=== PATIENT | male | born 1965 | race Caucasian/White ===

== ENCOUNTER 2020-12-26 12:00 | Observation (INO) | payer OTHER, SELFPAY ==
[2020-12-26] VITALS (10 sets, daily range): BP systolic 120–184; BP diastolic 66–104; PULSE 59–80; RESP 17–20; TEMP 36.7–36.8; O2SAT 94–100; BMI 30.1; BMI 28.6
--- NOTE | 2020-12-26 11:51 | ECG_ITS ---
APPROVED REPORT Exam: Resting ECG HR:61 bpm ECG Measurements Heart Rate 61 AXES SD 136 P 40 QRSd 142 QRS 36 QT 436 T 34 QTc 438 Conclusion Normal sinus rhythm Right bundle branch block Abnormal ECG Electronically signed by : Antonio Cat, 12/27/2020 08:54:18
--- NOTE | 2020-12-26 12:01 | XR_ITS ---
PROCEDURE: XR CHEST 2V CLINICAL HISTORY: chest pain COMPARISON: No exams were available for comparison FINDINGS: The cardiomediastinal silhouette and pulmonary vascularity are within normal limits. The lungs are clear without infiltrates, suspicious nodules, or pleural effusions. No acute bony abnormalities. IMPRESSION: No acute findings. Dictated by: Johnnie Gore MD 12/26/2020 12:26 Johnnie Gore MD in [place] 12/26/2020 12:26
--- NOTE | 2020-12-26 12:01 | HMH.EDCP ---
ED Disposition Clinical Impression: Chest pain Qualifiers: Chest pain type: chest pain due to myocardial ischemia Ischemic chest pain type: unstable angina pectoris Qualified Code(s): I20.0 - Unstable angina Disposition: Admitted As Inpatient Condition on Discharge: Serious Referrals: Ivy Ingram APRN [Primary Care Provider] - Time of Disposition: 15:24 - Critical Care Critical Care Time: No Attestation: On , the high probability of a clinically significant, sudden or life threatening deterioration of the following system(s) required my full and direct attention, intervention and personal management. The time I documented below is in addition to time spent performing reported procedures but includes the following listed in this critical care notation. Medical Decision Making - Medical Records Medical records reviewed: Yes: I reviewed the patient's medical records. - Reynold Inquiry Pt receiving controlled substance: No Vital Signs: 12/26/20 12:00 12/26/20 12:30 12/26/20 13:00 Temperature 98.3 F Temperature Source Oral Pulse Rate [Left Radial] 73 61 60 Respiratory Rate 20 18 Blood Pressure [Right Arm] 139/84 122/79 120/78 Blood Pressure Mean [Right Arm] 102 93 92 Blood Pressure Source [Right Arm] Automatic Cuff Blood Pressure Position [Right Arm] Sitting 02 Sat by Pulse Oximetry 100 95 98 Oxygen Delivery Method Room Air Room Air 12/26/20 14:30 12/26/20 15:17 Temperature Temperature Source Pulse Rate [Left Radial] 64 59 L Respiratory Rate 17 18 Blood Pressure [Right Arm] 143/92 H 149/97 H Blood Pressure Mean [Right Arm] 109 114 Blood Pressure Source [Right Arm] Blood Pressure Position [Right Arm] Sitting 02 Sat by Pulse Oximetry 97 96 Oxygen Delivery Method Room Air - Lab Data Lab Results 12/26/20 12:00: WBC 9.2, RBC 5.24, Hgb 16.1, Hct 50.3, MCV 95.9 H, MCH 30.8, MCHC 32.1, RDW 13.4, Plt Count 229, MPV 7.6, Neut % (Auto) 71.3, Lymph % (Auto) 20.6, Floyd % (Auto) 6.7, Eos % (Auto) 1.0, Baso % (Auto) 0.5, Neut # (Auto) 6.6, Lymph # (Auto) 1.9, [place] # (Auto) 0.6, Eos # (Auto) 0.1, Baso # (Auto) 0.0 12/26/20 12:00: Sodium 139, Potassium 3.9, Chloride 103, Carbon Dioxide 27, Anion Gap 12.9, BUN 21 H, Creatinine 0.90, Estimated Creat Clear 126, Estimated GFR 88, Est GFR ( Amer) 106, Glucose 78, Calcium 9.4, Troponin I < 0.01 12/26/20 12:00: D-Dimer 0.69 H 12/26/20 14:25: Troponin I < 0.01 Result diagrams: 12/26/20 12:00 12/26/20 12:00 Orders (Tests/Meds): ED MEDICATIONS Generic Name Dose Route Start Last Admin Trade Name Freq PRN Reason Stop Dose Admin Acetaminophen 650 mg 12/26/20 15:11 Acetaminophen 325mg Tab PO 01/25/21 15:10 Q4HP PRN As Needed for Fever or Pain Fentanyl Citrate 25 mcg 12/26/20 15:01 Fentanyl 100mcg/2ml Vial IV 12/27/20 15:01 Q3MINP PRN Moderate to Severe Pain Fentanyl Citrate 50 mcg 12/26/20 15:01 Fentanyl 100mcg/2ml Vial IV 12/27/20 15:01 Q3MINP PRN Moderate to Severe Pain Fentanyl Citrate 25 mcg 12/26/20 15:01 Fentanyl 250mcg/5ml Vial IV 12/27/20 15:01 Q3MINP PRN Moderate to Severe Pain Fentanyl Citrate 50 mcg 12/26/20 15:01 Fentanyl 250mcg/5ml Vial IV 12/27/20 15:01 Q3MINP PRN Moderate to Severe Pain Flumazenil 0.2 mg 12/26/20 15:01 Flumazenil 0.1mg/Ml 5ml Vial IV 12/26/20 23:00 NEEDED PRN Sedation Sodium Chloride 1,000 mls @ 150 mls/hr 12/26/20 15:15 Sod Chlor 0.9% 1000ml Bag IV 01/25/21 15:14 .Q6H40M DEVI Metoprolol Succinate 25 mg 12/27/20 15:30 Metoprolol Succinate Xl 25mg Tablet PO 12/27/20 15:31 DAILY ONE Midazolam HCl 1 mg 12/26/20 15:01 Midazolam 2mg/2ml Vial IV 12/27/20 15:01 Q3MINP PRN Sedation Midazolam HCl 1 mg 12/26/20 15:01 Midazolam Hcl 1mg/1ml 5ml Vial IV 12/27/20 15:01 Q3MINP PRN Sedation Naloxone HCl 0.4 mg 12/26/20 15:01 Naloxone 0.4mg/Ml Vial IV 03
[2020-12-26 12:17] LABS: Basophils % 0.5 % (0.1-2.0); Eosinophils # 0.1 K/mm3 (0.0-0.4); Hematocrit 50.3 % (42.0-52.0); Hemoglobin 16.1 g/dL (14.1-18.0); Lymphocytes # 1.9 K/mm3 (0.7-4.5); Lymphocytes % 20.6 % (10-50); Mean Corpuscular HGB Conc 32.1 g/dL (31.8-35.4); Mean Corpuscular Hemoglobin 30.8 pg (27.0-31.2); Mean Corpuscular Volume 95.9 fl (80-94); Mean Platelet Volume 7.6 fl (7.4-10.4); Monocytes # 0.6 K/mm3 (0.1-1.0); Monocytes % 6.7 % (1.7-9.3); Neutrophils # 6.6 K/mm3 (1.8-7.8); Neutrophils % 71.3 % (37.0-80.0); Platelet Count 229 K/mm3 (142-424); Red Blood Count 5.24 M/mm3 (4.60-6.20); Red Cell Distribution Width 13.4 % (11.5-17.5); White Blood Count 9.2 K/mm3 (4.8-10.8)
[2020-12-26 12:24] LABS: Anion Gap 12.9 mEq/L (5-15); Blood Urea Nitrogen 21 mg/dl (9-20); Calcium 9.4 mg/dl (8.4-10.2); Carbon Dioxide 27 mmol/L (22.0-30.0); Chloride 103 mmol/L (98-107); Creatinine Clearance Estimated 126 mL/min (50-200); Estimated Glomerular Filt Rate 88 ml/min (>60); GFR (African American) 106 ML/MIN (>60); Glucose 78 mg/dl (74-100); Potassium 3.9 mmoL/L (3.5-5.1); Sodium 139 mmol/L (136-145)
[2020-12-26 12:38] LABS: Troponin I < 0.01 ng/ml (0.00-0.034)
[2020-12-26 13:22] LABS: D-Dimer 0.69 ug/mL (0.0-0.5)
--- NOTE | 2020-12-26 13:28 | CT_ITS ---
PROCEDURE: CT ANGIO CHEST CLINCIAL INDICATION: cheat pain, elevated d-dimer COMPARISON: No exams were available for comparison TECHNIQUE: IV Contrast: 70ML Isovue 370 Axial images obtained with sagittal and coronal reformats. All CT scans at the facility use one or more dose reduction, viz: automated exposure control, ma/kV adjustment per patient size (including targeted exams where dose is matched to indication, i.e. head), or iterative reconstruction technique. FINDINGS: HEART AND MEDIASTINAL STRUCTURES: No evidence of pulmonary embolus or aortic aneurysm. Extensive coronary artery calcifications are present. LUNGS AND PLEURAL SPACES: Old granulomatous disease. There is scarring or atelectatic change in the lingula BONY STRUCTURES: No acute bony abnormalities apparent. UPPER ABDOMEN: Unremarkable. ADDITIONAL FINDINGS: No other significant abnormalities. IMPRESSION: No acute finding Dictated by: Johnnie Gore MD 12/26/2020 14:14 Johnnie Gore MD in [place] 12/26/2020 14:14
--- NOTE | 2020-12-26 14:33 | PC.NURSE ---
Cardiology at bedside at this time, patient to have heart cath in am.
--- NOTE | 2020-12-26 14:48 | HMH.CNCARD ---
History of Present Illness Consult date: 12/26/20 Requesting physician: Antonio Cat Consult reason: chest pain Chief complaint: chest pain Additional Medical History:: 1. Hypertension, treated for greater than 20 years 2. Obstructive sleep apnea, on no treatment 3. Family history of coronary artery disease in his father in his mid 60s 4. Daily alcohol use of 3-4 beers with occasional mixed drinks 5. Abnormal EKG (right bundle branch block) uncertain as to age. History of present illness: 55-year-old white male seen in the emergency department today for recurrent episodes of chest discomfort that has been waxing and waning during the morning hours. Symptoms worsen during lunchtime which prompted visit to the ER today. He was given sublingual nitroglycerin with significant improvement in his symptoms. He denies any shortness of breath but has noticed some nausea and belching. No appreciable radiation of symptoms to the left arm. Patient does machining type work which involves exertion with symptoms noticeable during that time. He also notices some increasing chest discomfort with deep breathing but denies any recent trauma, fever, chills, cough, vomiting or diarrhea. Baseline EKG is sinus rhythm with right bundle branch block. No prior history of syncope except one time during the middle of the night getting out of bed and passing out thereafter. That was about 10 years ago Initial troponin is normal. CTA of the chest showed no evidence of pulmonary embolus but he does have extensive proximal coronary artery calcification [facility] History Medical History: Reports:: Hyperlipidemia, Hypertension *Have you ever received a pneumonia vaccine?: No *Have you received a flu vaccine this season?: No - *Social History *Occupational Status:: employed *Travel in the last 8 weeks: Inside the [facility] Family Hx:: Coronary Artery Disease Meds Home Medications Medication Instructions Recorded Confirmed Type Losartan/Hydrochlorothiazide 1 each PO DAILY 12/26/20 12/26/20 History [Losartan-Hctz 100-12.5 mg Tab] Metoprolol Succinate [Metoprolol 25 mg PO DAILY 12/26/20 12/26/20 History Succinate 25mg Tablet*] Allergies Allergy/AdvReac Type Severity Reaction Status Date / Time No Known Allergies Allergy Verified 12/26/20 12:08 Exam Vital signs and Labs for Last 24 Hours: Temp Pulse Resp BP Pulse Ox 98.3 F 64 17 143/92 H 97 12/26/20 12:00 12/26/20 14:30 12/26/20 14:30 12/26/20 14:30 12/26/20 14:30 Laboratory Results - last 24 hr 12/26/20 12:00: WBC 9.2, RBC 5.24, Hgb 16.1, Hct 50.3, MCV 95.9 H, MCH 30.8, MCHC 32.1, RDW 13.4, Plt Count 229, MPV 7.6, Neut % (Auto) 71.3, Lymph % (Auto) 20.6, [place] % (Auto) 6.7, Eos % (Auto) 1.0, Baso % (Auto) 0.5, Neut # (Auto) 6.6, Lymph # (Auto) 1.9, [place] # (Auto) 0.6, Eos # (Auto) 0.1, Baso # (Auto) 0.0 12/26/20 12:00: Sodium 139, Potassium 3.9, Chloride 103, Carbon Dioxide 27, Anion Gap 12.9, BUN 21 H, Creatinine 0.90, Estimated Creat Clear 126, Estimated GFR 88, Est GFR ( Amer) 106, Glucose 78, Calcium 9.4, Troponin I < 0.01 12/26/20 12:00: D-Dimer 0.69 H I & O for Last 24 hours: Intake & Output 12/24/20 12/25/20 12/26/20 12/27/20 11:59 11:59 11:59 11:59 Weight 210 lb - Constitutional no acute distress - *Routine HEENT Exam Head: Present: normocephalic Eye: Present: EOMI, PERRL ENT: Present: mucous membranes moist - *Routine Neck Exam Present: supple. Absent: lymphadenopathy - *Routine Respiratory Exam Present: CTA bilaterally - *Routine Cardiovascular Exam Present: RRR - *Routine Abdominal Exam Present: soft, normoactive bowel sounds. Absent: tenderness - *Routine Extremities Exam Absent: cyanosis, clubbing, edema - *Routine Skin Exam Present: warm. Absent: rash - *Routine Neurological Exam Present: alert, oriented X3 Review of Systems - Review of Systems Review of systems:: pertinent systems reviewed and negat
--- NOTE | 2020-12-26 14:55 | CA_ITS ---
APPROVED REPORT EXAM: Comprehensive 2D, Doppler, and color-flow Echocardiogram Goldsmith Apprentice: Amanda Ruiz RT(R) Ht: 5 ft 9 in Wt: 200lbs BSA: 2.07 BP: 143/92 mmHg Indications: Angina, CP, HTN, hyperlipidemia, RBBB, MARILYN, alcohol abuse Echo Enhancing Agent Indication: Endocardial border delineation Agent(s) / Amount(s) Used: Definity 2 cc 2D Dimensions LVOT 2.07 cm (M/F) 1.5-2.5 M-Mode Dimensions RVDd 2.70 cm (0.9-2.6) LA Diam 3.62 cm (1.9-4.0) LVDd 3.99 cm (3.5-5.7) Ao Diam 2.67 cm (2.0-3.7) LVDs 3.12 cm (3.5-5.7) IVSd 0.99 cm (0.6-1.1) PWd 0.87 cm (0.6-1.1) EF (Teich) 44.70% FS 21.80% EDV (Teich) 69.60 mL ESV (Teich) 38.50 mL LV Diastology E Decel Time 230.00 (160-240 msec) E/A Ratio 0.9 MED E' 9.70 (< 7 cm/sec) E'/MED E' Ratio 4.70 (>14) LAT E' 9.20 (<10 cm/sec) E/LAT E' Ratio 4.96 (>14) Mitral Valve MV E Max Alex. 46.00 (40-130 cm/s) MV A Velocity 51.00 (40-130 cm/s) E/A Ratio 0.90 MV Decel. Time 230.00 (160-240 ms) MV PHT 67.00 ms Left Ventricle Left atrium is mildly enlarged, left ventricle is normal size, mild concentric left ventricular hypertrophy, visually estimated ejection fraction 55% with no regional wall motion abnormality, grade 1 diastolic dysfunction seen without tissue Doppler evidence of raise left atrial pressure. Definity contrast was utilized to delineate the endocardial surfaces, there is no left ventricular thrombus seen. Right Ventricle Right atrium and right ventricle are mildly enlarged with normal contractility. Aortic Valve Aortic valve is minimally thickened and fibrosed, there is no aortic stenosis or aortic insufficiency. Mitral Valve Mitral valve is grossly normal, there is trace mitral regurgitation. Tricuspid Valve Tricuspid is grossly normal, there is trace tricuspid regurgitation, tricuspid regurgitation jet velocity is inadequate for calculation of the right ventricular systolic pressure. Pulmonic Valve Pulmonic valve is poorly visualized. Great Vessels Aortic root is normal size. Pericardium No significant pericardial effusion noted. Conclusion 1. Mild biatrial enlargement, normal left ventricular size, mild concentric left ventricular hypertrophy, visually estimated ejection fraction 55% with no regional wall motion abnormality, grade 1 diastolic dysfunction seen without tissue Doppler evidence of raise left atrial pressure. Definity contrast was utilized to delineate the endocardial surfaces, there is no left ventricular thrombus seen. 2. Mildly enlarged right ventricle with normal contractility. 3. Trace mitral and tricuspid regurgitation. 4. No significant pericardial effusion noted. Electronically signed by : Adalid Hancock, 12/26/2020 16:37:40
--- NOTE | 2020-12-26 15:07 | PC.NURSE ---
DR Mcdaniel speaking with Dr Cat.
[2020-12-26 15:13] LABS: Troponin I < 0.01 ng/ml (0.00-0.034)
--- NOTE | 2020-12-26 16:01 | ECG_ITS ---
APPROVED REPORT Exam: Resting ECG HR:59 bpm ECG Measurements Heart Rate 59 AXES HI 156 P 40 QRSd 150 QRS 4 QT 450 T 4 QTc 445 Conclusion Sinus bradycardia Right bundle branch block Abnormal ECG Electronically signed by : Antonio Cat, 12/28/2020 16:34:19
--- NOTE | 2020-12-26 18:07 | PC.NURSE ---
Pt arrived to floor at this time.
[2020-12-26 18:48] LABS: Troponin I < 0.01 ng/ml (0.00-0.034)
--- NOTE | 2020-12-26 20:04 | PC.NURSE ---
Pt admitted to floor at 1810 approx. VSS. Pt did shower when getting to floor. CB in reach. Denies pain. Report given to RN. Cardiac mx in place. Fluids infusing as ordered per dec.
[2020-12-27] VITALS (20 sets, daily range): BP systolic 102–150; BP diastolic 62–95; PULSE 50–69; RESP 16–20; TEMP 36.4–37.2; O2SAT 92–99; BMI 29.0
--- NOTE | 2020-12-27 | IR_ITS ---
APPROVED REPORT Patient Location: Inpatient Water Main Installer Helper: KIM Albert RT (R) PROCEDURES Left heart catheterization Left ventriculogram Selective coronary angiogram Drug-eluting stent deployment to the proximal and mid LAD in a contiguous manner INDICATION Coronary artery disease, Unstable angina, Informed consent was obtained prior to the procedure. COMPLICATIONS None Estimated Blood Loss: Less than 10 mls TECHNIQUE One percent lidocaine used to anesthetize the right anterior aspect of the wrist. The right radial artery was accessed via the Seldinger technique. A 6 [place] sheath was placed in the right radial artery. 2.5 mg of verapamil, 800 mcg of nitroglycerin, 1mg Lidocaine and 5000 U Heparin were given through the arterial sheath. The trap catheter was also used to perform left heart catheterization, left ventriculogram and selective coronary angiogram. At the end the diagnostic angiogram therapeutic heparin was administered giving a therapeutic ACT. And I Chika left guide catheter was placed in the left main artery and a Choice PT extra-support wire was placed distally. A 3 mm x 38 mm resolute Talib stent was deployed at 16 yumiko in the mid LAD reducing the stenosis. An additional 3 mm x 30 mm resolute [place] stent was placed proximal to the first stent yet still overlapping the stent and deployed at 22 yumiko. The balloon was then advanced into the first stent and deployed at 20 yumiko to further post dilate. Excellent angiographic results were obtained with BLAKE-3 flow down the vessel before and after the procedure. After achieving excellent angiographic results the apparatus was removed the sheath was removed good hemostasis was achieved using TR banding patient was transferred to the postop holding area stable condition ANGIOGRAPHIC RESULTS The left main artery Normal The left anterior descending artery Has proximal 30% followed by concentric 80% followed by additional mid vessel 7060 and 50% stenoses all in a contiguous manner. A small to moderate sized first diagonal artery has proximal and mid vessel 40% disease The circumflex artery Dominant normal The right coronary artery Nondominant with mild luminal irregularities The [place] ventriculogram reveals Normal 65% The left ventricular end-diastolic pressure 20 mmHg IMPRESSION Severe proximal and mid LAD disease as described above Successful stenting the proximal and mid LAD severe disease reduced to 0% with 2 drug-eluting stents applied in a contiguous manner Normal ejection fraction Mildly elevated LVEDP PLAN 1. Brilinta and aspirin 2. LDL less than 55 3. Cardiac rehabilitation 4. Avoidance of tobacco products 5. Aggressive risk factor modification Electronically signed by : Ad Edwards, 12/27/2020 10:23:45
--- NOTE | 2020-12-27 00:01 | XR_ITS ---
PROCEDURE: XR CHEST PORTABLE CLINICAL HISTORY: chest pain COMPARISON: CR XR CHEST 2V from 12/26/[address] ANGIO CHEST from 12/26/2020 FINDINGS: The cardiomediastinal silhouette and pulmonary vascularity are within normal limits. The lungs are clear without infiltrates, suspicious nodules, or pleural effusions. No acute bony abnormalities. IMPRESSION: No acute findings. Dictated by: Johnnie Gore MD 12/27/2020 06:11 Johnnie Gore MD in [place] 12/27/2020 06:11
[2020-12-27 01:04] LABS: Troponin I < 0.01 ng/ml (0.00-0.034)
--- NOTE | 2020-12-27 04:32 | PC.NURSE ---
NO ACUTE CHANGES FROM PREVIOUS ASSESSMENT.LUNGS CLEAR,RESP.EVEN AND UNLABORED.PT HAS DENIED ANY CHEST PAIN.IV INFUSING WITHOUT DIFF.DENIES ANY N/V.PT NPO FOR HEART CATH TODAY.
--- NOTE | 2020-12-27 06:26 | HMH.HP ---
*Admission Date: 12/26/20 *Chief complaint: Chest pain *History of present illness: Mr. Iglesias is a 55-year-old male seen in the ED yesterday because of recurrent episodes of chest pain and discomfort. Symptoms have been occurring during the morning hours and worsening over the past several days. On arrival to the ER he was given sublingual nitroglycerin with improvement in his symptoms. Denies shortness of breath but has been having some GI symptoms including nausea and belching. Denies referred pains or radiation to his left arm but symptoms were quite concerning to him. On initial work-up, EKG with sinus rhythm and right bundle branch block. Denied syncope, mireya emesis, diarrhea, headache or confusion. Next imaging obtained showing significant coronary artery calcifications on CTA. He was admitted to medicine for further management and cardiology was consulted. Cardiology saw the patient yesterday afternoon with plan for monitoring overnight and possible left heart catheterization this morning. Serial troponins have remained negative. Patient continues to have some discomfort this morning. at bedside and updated on plan. [facility] History I have reviewed the patient's past medical history: Yes Medical History: Reports:: Hyperlipidemia, Hypertension Denies:: Cancer, Diabetes Mellitus Type 1, Diabetes Mellitus Type 2, MRSA *Have you ever received a pneumonia vaccine?: No *Have you received a flu vaccine this season?: No Amputation: No - *Social History Alcohol Intake: current Alcohol Intake Frequency:: 3 or more drinks per day *Occupational Status:: employed *Travel in the last 8 weeks: None Family Hx:: Coronary Artery Disease Review of Systems - Review of Systems Review of systems:: pertinent systems reviewed and negative unless documented below (14 point review of systems performed, pertinent positives and negatives as per HPI) - *Neurologic Denies headache(s), Denies fainting Meds Home Medications Medication Instructions Recorded Confirmed Type Losartan/Hydrochlorothiazide 1 each PO DAILY 12/26/20 12/26/20 History [Losartan-Hctz 100-12.5 mg Tab] Metoprolol Succinate [Metoprolol 25 mg PO DAILY 12/26/20 12/26/20 History Succinate 25mg Tablet*] Allergies Allergy/AdvReac Type Severity Reaction Status Date / Time No Known Allergies Allergy Verified 12/26/20 12:08 Exam Vital signs and Labs for Last 24 Hours: Temp Pulse Resp BP Pulse Ox 97.6 F 60 16 123/68 94 L 12/27/20 04:00 12/27/20 04:00 12/27/20 04:00 12/27/20 04:00 12/27/20 04:00 Laboratory Results - last 24 hr 12/26/20 12:00: WBC 9.2, RBC 5.24, Hgb 16.1, Hct 50.3, MCV 95.9 H, MCH 30.8, MCHC 32.1, RDW 13.4, Plt Count 229, MPV 7.6, Neut % (Auto) 71.3, Lymph % (Auto) 20.6, [place] % (Auto) 6.7, Eos % (Auto) 1.0, Baso % (Auto) 0.5, Neut # (Auto) 6.6, Lymph # (Auto) 1.9, [place] # (Auto) 0.6, Eos # (Auto) 0.1, Baso # (Auto) 0.0 12/26/20 12:00: Sodium 139, Potassium 3.9, Chloride 103, Carbon Dioxide 27, Anion Gap 12.9, BUN 21 H, Creatinine 0.90, Estimated Creat Clear 126, Estimated GFR 88, Est GFR ( Amer) 106, Glucose 78, Calcium 9.4, Troponin I < 0.01 12/26/20 12:00: D-Dimer 0.69 H 12/26/20 14:25: Troponin I < 0.01 12/26/20 18:15: Troponin I < 0.01 12/27/20 00:30: Troponin I < 0.01 I & O for Last 24 hours: Intake & Output 12/24/20 12/25/20 12/26/20 12/27/20 23:59 23:59 23:59 23:59 Intake Total 120 / 120 Balance 120 / 120 Weight 88.054 kg Microbiology Reports for the Last 24 Hours: Microbiology 12/26/20 14:29 Nasopharyngeal Coronavirus COVID-19 PCR - Final - *Routine HEENT Exam Head: Present: normocephalic Eye: Present: EOMI, PERRL ENT: Present: mucous membranes moist - *Routine Neck Exam Present: supple. Absent: lymphadenopathy - *Routine Respiratory Exam Present: CTA bilaterally - *Routine Cardiovascular Exam Present: RRR - *Routine Abdominal Exam Present: soft, normoactive
--- NOTE | 2020-12-27 07:30 | HMH.PHAVTE ---
[facility] Pharmacy VTE Monitoring - Patient Demographics Admission date: 12/26/20 Report Date: 12/27/20 Time: 07:31 Allergies/Adverse Reactions: Patient Allergies No Known Allergies Allergy (Verified 12/26/20 12:08) Height: 1.75 m Weight: 88.054 kg Patient Problems: Current Active Problems Angina pectoris (Acute) Hypertension (Acute) MARILYN (obstructive sleep apnea) (Acute) Right bundle branch block (Acute) Family history of coronary artery disease in father (Acute) Coronary artery calcification seen on CT scan (Acute) Chest pain (Acute) - VTE Risk Labs: VTE Related Lab Results Hgb 16.1 g/dL (14.1-18.0) 12/26/20 12:00 Hct 50.3 % (42.0-52.0) 12/26/20 12:00 Plt Count 229 K/mm3 (142-424) 12/26/20 12:00 BUN 21 mg/dl (9-20) H 12/26/20 12:00 Creatinine 0.90 mg/dl (0.66-1.25) 12/26/20 12:00 Estimated Creat Clear 126 mL/min (50-200) 12/26/20 12:00 VTE Score: 2 - Prophylaxis VTE Prophylaxis Ordered?: Yes Types of VTE Prophylaxis: TEDS Knee High Location of Applied Device: Bilateral Lower Extremeties
--- NOTE | 2020-12-27 08:31 | P.PN_ITS ---
Subjective Date: 12/27/20 Time: 08:31 Principal diagnosis: Angina Interval history: 55-year-old male in the bathroom in no acute distress patient denies any chest pain, pressure or tightness overnight. Plan is for left heart catheterization today with further recommendations thereafter. Troponins returned normal x4 overnight. Exam Vital signs and Labs for Last 24 Hours: Temp Pulse Resp BP Pulse Ox 98.1 F 62 18 150/74 H 95 12/27/20 08:00 12/27/20 08:00 12/27/20 08:00 12/27/20 08:00 12/27/20 08:00 Laboratory Results - last 24 hr 12/26/20 12:00: WBC 9.2, RBC 5.24, Hgb 16.1, Hct 50.3, MCV 95.9 H, MCH 30.8, MCHC 32.1, RDW 13.4, Plt Count 229, MPV 7.6, Neut % (Auto) 71.3, Lymph % (Auto) 20.6, [place] % (Auto) 6.7, Eos % (Auto) 1.0, Baso % (Auto) 0.5, Neut # (Auto) 6.6, Lymph # (Auto) 1.9, [place] # (Auto) 0.6, Eos # (Auto) 0.1, Baso # (Auto) 0.0 12/26/20 12:00: Sodium 139, Potassium 3.9, Chloride 103, Carbon Dioxide 27, Ani on Gap 12.9, BUN 21 H, Creatinine 0.90, Estimated Creat Clear 126, Estimated GFR 88, Est GFR ( Amer) 106, Glucose 78, Calcium 9.4, Troponin I < 0.01 12/26/20 12:00: D-Dimer 0.69 H 12/26/20 14:25: Troponin I < 0.01 12/26/20 18:15: Troponin I < 0.01 12/27/20 00:30: Troponin I < 0.01 I & O for Last 24 hours: Intake & Output 12/24/20 12/25/20 12/26/20 12/27/20 11:59 11:59 11:59 11:59 Intake Total 1679 / 1679 Balance 1679 / 1679 Weight 196 lb Microbiology Reports for the Last 24 Hours: Microbiology 12/26/20 14:29 Nasopharyngeal Coronavirus COVID-19 PCR - Final Narrative: Not examined due to being in the bathroom. Progress Note: A&P (1) Angina pectoris Status: Acute (2) Hypertension Status: Acute (3) MARILYN (obstructive sleep apnea) Status: Acute (4) Right bundle branch block Status: Acute (5) Family history of coronary artery disease in father Status: Acute (6) Coronary artery calcification seen on CT scan Status: Acute Assessment and Plan for All Diagnoses:: Left heart catheterization as noted above with further recommendations thereafter.
[2020-12-27 08:43] LABS: Basophils % 0.6 % (0.1-2.0); Eosinophils # 0.1 K/mm3 (0.0-0.4); Eosinophils % 1.7 % (0.1-12.0); Hematocrit 45.9 % (42.0-52.0); Hemoglobin 15.5 g/dL (14.1-18.0); Lymphocytes # 1.4 K/mm3 (0.7-4.5); Lymphocytes % 19.5 % (10-50); Mean Corpuscular HGB Conc 33.9 g/dL (31.8-35.4); Mean Corpuscular Hemoglobin 31.1 pg (27.0-31.2); Mean Corpuscular Volume 91.9 fl (80-94); Mean Platelet Volume 8.3 fl (7.4-10.4); Monocytes # 0.5 K/mm3 (0.1-1.0); Monocytes % 6.6 % (1.7-9.3); Neutrophils % 71.7 % (37.0-80.0); Platelet Count 219 K/mm3 (142-424); Red Blood Count 4.99 M/mm3 (4.60-6.20); Red Cell Distribution Width 13.2 % (11.5-17.5)
[2020-12-27 08:57] LABS: Chloride 107 mmol/L (98-107); Sodium 140 mmol/L (136-145)
--- NOTE | 2020-12-27 08:57 | HMH.PHAINT ---
clarified home medication list after calling [facility]
[2020-12-27 09:00] LABS: Blood Urea Nitrogen 17 mg/dl (9-20); Creatinine Clearance Estimated 118 mL/min (50-200); Estimated Glomerular Filt Rate 88 ml/min (>60); GFR (African American) 106 ML/MIN (>60)
[2020-12-27 09:01] LABS: Calcium 8.7 mg/dl (8.4-10.2); Carbon Dioxide 27 mmol/L (22.0-30.0); Glucose 104 mg/dl (74-100)
--- NOTE | 2020-12-27 13:50 | HMH.DCSUM ---
General - General Admission date:: 12/26/20 Discharge date: 12/27/20 HPI HPI: Mr. Mackay is a 55-year-old male seen in the ED yesterday because of recurrent episodes of chest pain and discomfort. Symptoms have been occurring during the morning hours and worsening over the past several days. On arrival to the ER he was given sublingual nitroglycerin with improvement in his symptoms. Denies shortness of breath but has been having some GI symptoms including nausea and belching. Denies referred pains or radiation to his left arm but symptoms were quite concerning to him. On initial work-up, EKG with sinus rhythm and right bundle branch block. Denied syncope, mireya emesis, diarrhea, headache or confusion. Next imaging obtained showing significant coronary artery calcifications on CTA. He was admitted to medicine for further management and cardiology was consulted. Cardiology saw the patient yesterday afternoon with plan for monitoring overnight and possible left heart catheterization this morning. Serial troponins have remained negative. Patient continues to have some discomfort this morning. at bedside and updated on plan. Hospital Course Hospital Course: 55-year-old male who presented with chest pain and pressure. Cardiology was consulted, appreciate their assistance in the care of this patient. Taken for left heart cath. Found to have clinically significant coronary artery disease in his proximal mid LAD. 2 drug-eluting stents placed. Full impression and plan as follows: IMPRESSION Severe proximal and mid LAD disease. Successful stenting the proximal and mid LAD severe disease reduced to 0% with 2 drug-eluting stents applied in a contiguous manner. Normal ejection fraction Mildly elevated LVEDP PLAN 1. Brilinta and aspirin 2. LDL less than 55 3. Cardiac rehabilitation 4. Avoidance of tobacco products 5. Aggressive risk factor modification Med recommendations Metoprolol succinate XL 25 mg daily in the evening Atorvastatin 40 mg daily Aspirin 81 mg daily Brilinta 90 mg BID Irbesartan 150 mg daily (or prior ARB from home) HCTZ 12.5 mg daily Patient tolerated the procedure well. Plan to discharge home. Medically stable for discharge. Close follow-up in the outpatient setting with primary care and cardiology. Objective Vital signs: Temp Pulse Resp BP Pulse Ox 98.9 F 62 16 111/78 99 12/27/20 11:40 12/27/20 13:10 12/27/20 13:10 12/27/20 13:10 12/27/20 13:10 Narrative: - *Routine HEENT Exam Head: Present: normocephalic Eye: Present: EOMI, PERRL ENT: Present: mucous membranes moist - *Routine Neck Exam Present: supple. Absent: lymphadenopathy - *Routine Respiratory Exam Present: CTA bilaterally - *Routine Cardiovascular Exam Present: RRR - *Routine Abdominal Exam Present: soft, normoactive bowel sounds. Absent: tenderness - *Routine Extremities Exam Absent: cyanosis, clubbing, edema - *Routine Skin Exam Present: warm. Absent: rash - *Routine Neurological Exam Present: alert, oriented X3 Results Labs on day of discharge: Labs from last 24 hours 12/27/20 12/27/20 12/27/20 08:30 08:30 00:30 WBC 7.0 RBC 4.99 Hgb 15.5 Hct 45.9 MCV 91.9 MCH 31.1 MCHC 33.9 RDW 13.2 Plt Count 219 MPV 8.3 Neut % (Auto) 71.7 Lymph % (Auto) 19.5 [place] % (Auto) 6.6 Eos % (Auto) 1.7 Baso % (Auto) 0.6 Neut # (Auto) 5.0 Lymph # (Auto) 1.4 [place] # (Auto) 0.5 Eos # (Auto) 0.1 Baso # (Auto) 0.0 Sodium 140 Potassium 4.0 Chloride 107 Carbon Dioxide 27 Anion Gap 10.0 BUN 17 Creatinine 0.90 Estimated Creat Clear 118 Estimated GFR 88 Est GFR ( Amer) 106 Glucose 104 H D Calcium 8.7 Troponin I < 0.01 12/26/20 12/26/20 18:15 14:25 WBC RBC Hgb Hct MCV MCH MCHC RDW Plt Count MPV Neut % (Auto) Lymph % (Auto) [place] % (Au
[2020-12-27 14:39] LABS: CATHL Activated Clotting Time > 400 SEC (74-125)
--- NOTE | 2020-12-27 19:13 | PC.NURSE ---
THIS RN REMOVED RADIALBAND FROM RIGHT WRIST, CLEANED AREA AND APPLIED NON STICK GAUZE SECURED BY TEGADERM. NO DRAINAGE NOTED. PATIENT TOLERATED WELL. THIS RN PROVIDED CARDIAC DISCHARGE INSTRUCTIONS TO PATIENT AND SPOUSE. PATIENT AND SPOUSE VERBALIZED AN UNDERSTANDING.
--- NOTE | 2020-12-28 08:13 | HMH.PHACLD ---
PATIENT LEFT AFTER PHARMACY WAS CLOSED FOR THE DAY. VERIFIED THAT PATIENT WAS SENT HOME ON BRILINTA, ASPIRIN, LOSARTAN, ATORVASTATIN, AND METOPROLOL. -EREN MELCHORD
== END 2020-12-27 18:17 | disposition home or self-care (01) ==
LOC: ER 15:24 → 2ND 16:04
PROVIDERS: Internal Medicine; Admitting Provider Internal Medicine Adolescent Medicine; Emergency Provider Emergency Medicine; PCP Nurse Practitioner Family; Visit Provider Internal Medicine Adolescent Medicine
DX: I25.110 Atherosclerotic heart disease of native coronary artery with unstable angina pectoris (principal); I10 Essential (primary) hypertension; E78.5 Hyperlipidemia, unspecified; G47.33 Obstructive sleep apnea (adult) (pediatric); I45.10 Unspecified right bundle-branch block; Z82.49 Family history of ischemic heart disease and other diseases of the circulatory system; Z79.899 Other long term (current) drug therapy
CPT/HCPCS: 36415; 71045; 71046; 71275; 80048; 84484; 85025; 85347; 85378; 92928; 93005; 93306; 93458; 96374; 96375; 99152; 99284; C1725; C1769; C1876; C9600; G0378; J1644; Q9957; Q9967; U0003

== ENCOUNTER → 2021-01-06 07:12 | Outpatient (CLI) | payer OTHER, SELFPAY ==
[2021-01-06 08:42] LABS: Blood Urea Nitrogen 20 mg/dl (9-20); Estimated Glomerular Filt Rate 101 ml/min (>60); GFR (African American) 122 ML/MIN (>60)
[2021-01-06 09:24] LABS: Hematocrit 45.9 % (42.0-52.0); Hemoglobin 15.8 g/dL (14.1-18.0)
== END ==
PROVIDERS: Visit Provider Internal Medicine Adolescent Medicine
DX: I25.10 Atherosclerotic heart disease of native coronary artery without angina pectoris (principal)
CPT/HCPCS: 36415; 82565; 84520; 85014; 85018

== ENCOUNTER 2021-01-15 14:59 | Outpatient (RCR) | payer OTHER, SELFPAY | END 2021-04-25 11:01 | disposition home or self-care (01) | LOC: PT 14:59 | PROVIDERS: Visit Provider Internal Medicine | DX: Z95.5 Presence of coronary angioplasty implant and graft (principal); I25.110 Atherosclerotic heart disease of native coronary artery with unstable angina pectoris | CPT/HCPCS: 93798 ==

== ENCOUNTER → 2021-07-14 07:11 | Outpatient (CLI) | payer OTHER, SELFPAY ==
[2021-07-14 08:31] LABS: Chloride 103 mmol/L (98-107)
[2021-07-14 08:32] LABS: Potassium 4.1 mmoL/L (3.5-5.1); Sodium 139 mmol/L (136-145)
[2021-07-14 08:34] LABS: Alanine Aminotransferase 27 U/L (12-78); Anion Gap 13.1 mEq/L (5-15); Aspartate Amino Transferase 34 U/L (17-59); Bilirubin,Unconjugated 0.8 mg/dL (0.0-1.1); Blood Urea Nitrogen 19 mg/dl (9-20); Carbon Dioxide 27 mmol/L (22.0-30.0); Estimated Glomerular Filt Rate 101 ml/min (>60); GFR (African American) 122 ML/MIN (>60)
[2021-07-14 08:35] LABS: Alkaline Phosphatase 96 U/L (38-126); Bilirubin,Direct 0.1 mg/dl (0.0-0.4); Bilirubin,Indirect 0.8 mg/dL (0.0-0.9); Bilirubin,Total 0.9 mg/dl (0.2-1.3); Chol/HDL Ratio 2.2 (1-3.5); Cholesterol 123 mg/dl (140-200); Glucose 104 mg/dl (74-100); HDL Cholesterol 55 mg/dl (40-60); Triglycerides 39 mg/dl (30-150); VLDL Cholesterol 8 mg/dL (0-40)
[2021-07-14 09:03] LABS: Direct LDL Cholesterol 59.37 mg/dL (100-129)
== END ==
PROVIDERS: Visit Provider Physician Assistant
DX: I25.10 Atherosclerotic heart disease of native coronary artery without angina pectoris (principal); I45.10 Unspecified right bundle-branch block; I10 Essential (primary) hypertension; G47.33 Obstructive sleep apnea (adult) (pediatric); Z79.899 Other long term (current) drug therapy
CPT/HCPCS: 36415; 80048; 80061; 80076

== ENCOUNTER 2024-12-29 07:19 | Outpatient (CLI) | payer OTHER, SELFPAY ==
--- NOTE | 2024-12-29 07:23 | CT_ITS ---
FINAL REPORT TECHNIQUE: After the administration of intravenous contrast, axial images were obtained through the abdomen and pelvis by computed tomography. The study was performed with techniques to keep radiation dose as low as reasonably achievable, (ALARA). Individual dose reduction techniques using automated exposure control or adjustment of mA and/or kV according to the patient's size were employed. CLINICAL HISTORY: HEMATURIA COMPARISON: None FINDINGS: Abdomen: The lung bases are clear. There is mild fatty infiltration of the liver. The gallbladder is present. The spleen, pancreas, adrenals and kidneys appear unremarkable. The aorta is normal in caliber. There is no free fluid or adenopathy. Pelvis: The appendix is normal. There is moderate descending and sigmoid diverticulosis without evidence of diverticulitis. The urinary bladder is contracted. There is no free fluid or adenopathy. On the sagittal images, there is high-grade neural foraminal narrowing on the left at L5-S1. IMPRESSION: Diverticulosis without evidence of diverticulitis. Left L5-S1 high-grade neural foraminal narrowing. Reviewed, Interpreted and Dictated by Misael Garces MD Transcribed by Vielka Johnson Authenticated and [facility]
[2024-12-29 07:40] LABS: Blood Urea Nitrogen 19 mg/dl (9-20); Estimated Glomerular Filt Rate 87 ml/min (>60); GFR (African American) 105 ML/MIN (>60)
[2024-12-29] MEDS: IOPAMIDOL-370 (76%);100ML BOTTLE 75 ML IV (08:06)
[2024-12-29] MEDS: SODIUM CHLORIDE 0.9% 10ML SYR (RAD ONLY) 10 ML IV (08:06)
== END 2024-12-29 23:59 | disposition home or self-care (01) ==
LOC: RAD 07:20
PROVIDERS: PCP Nurse Practitioner Family; Visit Provider Nurse Practitioner Family
DX: R31.29 Other microscopic hematuria (principal)
CPT/HCPCS: 36415; 74177; 82565; 84520; Q9967

== ENCOUNTER 2025-03-20 08:49 | Day surgery (SDC) | payer OTHER, SELFPAY ==
[2025-03-16 14:21] VITALS: BMI 28.0
--- NOTE | 2025-03-20 09:12 | EXP.GEN.HP ---
HPI HPI HPI: This is a 59-year-old gentleman who presents for colonoscopy. He has never undergone a colonoscopy. He reports a recent Cologuard study was positive. [facility] Disclaimer: The information contained in this section may have been updated after the patient was seen, as this information can be updated by other users. Medical History (Updated 03/20/25 @ 09:13 by Silver Benz MD) Hypercholesterolemia Hypertension Daytime somnolence Decreased stamina CAD (coronary artery disease) Surgical History Hx of umbilical hernia repair History of cardiac catheterization Family History Cancer Father Social History Smoking Status: Never smoker alcohol intake: never substance use type: denies use current occupational status: employed Travel in the last 8 weeks?: None Have you lived/traveled outside US in past 30 days?: No Contact w/someone who lives/traveled outside US past 30 days?: No Exposure to someone with infectious disease in past 14 days?: No Do you have a fever (greater than 100.4 F or 38 C)?: No Have you tested positive for COVID-19?: No Exposed to someone with COVID-19 in past 14 days?: No Do you have a sore throat?: No Do you have a cough?: No Do you have any weakness?: No Are you experiencing any nausea/vomitting?: No Do you have any diarrhea?: No Are you experiencing any unusual bleeding?: No Do you have any muscle aches/pain?: No Do you have any abdominal pain?: No Are you experiencing loss of taste or smell?: No Other Medical History Have you received the Flu Vaccine for this season: No Have you received the Pneumonia Vaccine: No Review of Systems Review of Systems Review of systems:: pertinent systems reviewed and negative unless documented below Meds Home Medications and Allergies Home Medications ?Medication ?Instructions ?Recorded ?Confirmed ?Type losartan 100 1 each PO DAILY Hypertension 12/26/20 03/20/25 History mg-hydrochlorothiazide 12.5 mg tablet metoprolol succinate 25 mg 25 mg PO DAILY Hypertension 12/26/20 03/20/25 History tablet,extended release 24 hr aspirin 81 mg tablet,delayed 81 mg PO DAILY 30 days ##30 12/27/20 03/20/25 Rx release atorvastatin 40 mg tablet 40 mg PO HS 30 days #30 tabs 12/27/20 03/20/25 Rx New Prescriptions to Start Prescriptions: Allergies Allergy/AdvReac Type Severity Reaction Status Date / Time No Known Allergies Allergy Verified 03/20/25 09:00 Exam Data for Last 24 hours I & O for Last 24 hours: Intake & Output 03/17/25 03/18/25 03/19/25 03/20/25 11:59 11:59 11:59 11:59 Weight 190 lb Constitutional Constitutional: no acute distress *Routine HEENT Exam Head: Present normocephalic Eye: Present EOMI ENT: Present mucous membranes moist *Routine Neck Exam Neck: Present full ROM *Routine Respiratory Exam Respiratory: Absent respiratory distress *Routine Cardiovascular Exam Cardiovascular: Absent tachycardia *Routine Abdominal Exam Abdominal: Present soft *Routine Rectal Exam Rectal:: deferred *Routine Genitalia Exam Genitalia:: deferred *Routine Extremities Exam Extremities: Present full ROM *Routine Skin Exam Skin: Absent erythema *Routine Neurological Exam Neurological: Present alert Assessment and Plan *Assessment and plan (1) Positive colorectal cancer screening using Cologuard test: Status: Acute Category: Medical Code(s): R19.5 - Other fecal abnormalities Plan: Colonoscopy today I have discussed the risks and benefits including, but not limited to: Bleeding Infection Damage to surrounding tissue Inherent risks of sedation The patient agrees to proceed.
[2025-03-20 09:14] VITALS: BP 140/72; PULSE 56; RESP 14; O2SAT 97
[2025-03-20] MEDS: LACTATED RINGERS 1000ML 1,000 ML 50 ML IV (09:27)
--- NOTE | 2025-03-20 09:44 | P.PNANES_ITS ---
[facility] Disclaimer: The information contained in this section may have been updated after the patient was seen, as this information can be updated by other users. Medical History Hypercholesterolemia Hypertension Daytime somnolence Decreased stamina CAD (coronary artery disease) Surgical History Hx of umbilical hernia repair History of cardiac catheterization Family History Father Cancer Social History Smoking Status: Never smoker alcohol intake: never substance use type: denies use current occupational status: employed Travel in the last 8 weeks?: None caffeine: Yes Have you lived/traveled outside US in past 30 days?: No Contact w/someone who lives/traveled outside US past 30 days?: No Exposure to someone with infectious disease in past 14 days?: No Do you have a fever (greater than 100.4 F or 38 C)?: No Have you tested positive for COVID-19?: No Exposed to someone with COVID-19 in past 14 days?: No Do you have a sore throat?: No Do you have a cough?: No Do you have any weakness?: No Are you experiencing any nausea/vomitting?: No Do you have any diarrhea?: No Are you experiencing any unusual bleeding?: No Do you have any muscle aches/pain?: No Do you have any abdominal pain?: No Are you experiencing loss of taste or smell?: No [facility] Anesthesia Checklist Patient Identification Patient Identification: Arm Band and Verbal (Name & ) Structural Data Admitted From: Home Planned Operative Procedure/s: colonscopy Verified Documents: Surgical Consent and History and Physical NPO Status Verified Time NPO: 00:00 Additional verifications Anesthesia Reactions: No Previous Colonoscopy: Yes Airway Assessment Mallampati Score:: Class II Dentition: Good Dentition Neurological Assessment Level of Consciousness: Awake, Alert and Appropriate Hx Seizures: No Anesthesia Plan Anesthesia Risk discussed: Yes Anesthesia Plan: Verified ASA Class: II Anesthesia Type: MAC
--- NOTE | 2025-03-20 10:16 | HMH.SCOPE ---
Procedure: Date: 03/20/25 Patient Date of :: 1965 Procedure Performed:: Colonoscopy with polypectomy Indications:: Positive Cologuard Performing Provider:: Silver Benz MD Referring Provider:: . Sedation:: Monitored anesthesia care Procedure:: After informed consent was obtained the patient was taken to the endoscopy suite. Sedation ensued after the patient was transferred to the left lateral decubitus position. Pulse, blood pressure, and oxygen saturation were monitored throughout the procedure. Digital rectal exam revealed no significant abnormality. The colonoscope was placed in position. The entire colon was evaluated. The colonoscope was carefully removed and the patient was transferred to recovery in stable condition. Please see findings and specimens below for detail. Findings:: Bowel preparation fair to moderate Scattered diverticulosis (worse in sigmoid) Inflamed/stenotic ileocecal valve Polyps (see specimens) Specimens:: Ileocecal valve biopsy (cold biopsy forceps) Polyp at 65 cm (cold snare) Large complex lobulated pedunculated polyp at 25 cm (hot snare) Re-excision of stump/margin of polyp at 25 cm (hot snare) Recommendations:: Timing of repeat colonoscopy is pending pathology will likely be around 6-12 months secondary to size/nature of polyp Consider small bowel follow-through secondary to stenotic nature of ileocecal valve Complications:: No immediate Estimated blood obtained (mL): 1 Colonoscopy Component Colonoscopy Component Was a colonoscopy performed during today's procedure?: Yes Recommended follow up colonoscopy of at least 10 years?: No If no, follow up colonoscopy recommended in ___ years?: (See above) Reason for not recommending >/= 10 yr follow-up interval?: (See above)
[2025-03-20 10:25] VITALS: BP 91/61; PULSE 63; RESP 16; TEMP 36.4; O2SAT 97
[2025-03-20 10:35] VITALS: BP 94/61; PULSE 61; RESP 16; O2SAT 97
[2025-03-20 10:45] VITALS: BP 96/64; PULSE 59; RESP 18; O2SAT 100
[2025-03-20 10:55] VITALS: BP 103/61; PULSE 49; RESP 17; O2SAT 100
== END 2025-03-20 11:00 | disposition home or self-care (01) ==
PROVIDERS: PCP Nurse Practitioner Family; Visit Provider Surgery
PROC: 0DJD8ZZ Inspection of Lower Intestinal Tract, Via Natural or Artificial Opening Endoscopic (ICD-10-PCS; CPT 45380; principal; 2025-03-20 09:55)
DX: K52.9 Noninfective gastroenteritis and colitis, unspecified (principal); D12.6 Benign neoplasm of colon, unspecified; K57.30 Diverticulosis of large intestine without perforation or abscess without bleeding; R19.5 Other fecal abnormalities; I25.10 Atherosclerotic heart disease of native coronary artery without angina pectoris; I10 Essential (primary) hypertension; E78.5 Hyperlipidemia, unspecified; Z79.899 Other long term (current) drug therapy; Z79.82 Long term (current) use of aspirin
CPT/HCPCS: 45380; 45385; J7120

== ENCOUNTER 2025-04-11 07:41 | Outpatient (CLI) | payer OTHER, SELFPAY ==
--- NOTE | 2025-04-11 08:00 | FL_ITS ---
FINAL REPORT CLINICAL HISTORY: stenotic nature of ileocecal valve fluoro time: .55 Dose: 149.73 mgy FINDINGS: SMALL BOWEL FOLLOW THROUGH HISTORY: Ileocecal valve stenosis. PROCEDURE: The patient ingested barium. Spot and overhead films were obtained. FINDINGS: The electromechanical assembler film is unremarkable. The transit time to the colon is normal. The mucosal fold pattern is normal. Spot images of the terminal ileum reveal no definite narrowing although imaging is mildly limited by overlying loops of bowel. IMPRESSION: Normal small bowel follow-through. Fluoroscopy time: 55 seconds Radiation exposure in Reference air Kerma: 149.73 mGy Reviewed, Interpreted and Dictated by Calista Solis MD Transcribed by NARA Bowie Authenticated and [facility]
[2025-04-11] MEDS: DIATRIZOATE MEGLUMINE(GASTROGRAFIN) 66%-10% 120ML 30 ML PO (08:09)
[2025-04-11] MEDS: BARIUM SULFATE(LIQUID E-Z-PAQUE);355ML BOTTLE 355 ML PO (08:09)
== END 2025-04-11 23:59 | disposition home or self-care (01) ==
LOC: RAD 07:42
PROVIDERS: PCP Nurse Practitioner Family; Visit Provider Surgery
DX: K56.699 Other intestinal obstruction unspecified as to partial versus complete obstruction (principal); R19.5 Other fecal abnormalities
CPT/HCPCS: 74250; Q9963

== ENCOUNTER 2025-06-29 13:00 | Outpatient (CLI) | payer OTHER, SELFPAY ==
--- NOTE | 2025-06-29 13:03 | XR_ITS ---
FINAL REPORT CLINICAL HISTORY: Pain of Left Foot FINDINGS: Left foot THREE VIEW FINDINGS: Three views show no evidence of an acute, displaced fracture or dislocation of the visualized bony architecture. Moderate hallux valgus deformity is present. Mild hammertoe deformity is seen of 2nd through 5th digits. Mild pes cavus deformity is noted. Moderate plantar calcaneal spurring seen. IMPRESSION: Chronic changes as above Authenticated and [facility]
--- NOTE | 2025-06-29 13:03 | XR_ITS ---
FINAL REPORT CLINICAL HISTORY: Pain of Right Foot FINDINGS: Right foot THREE VIEW FINDINGS: Three views show no evidence of an acute, displaced fracture or dislocation of the visualized bony architecture. Severe hallux valgus deformity is present. Mild pes cavus deformity is seen. Hammertoe deformity is noted of the 2nd through 5th digits. Calcaneal spurring is present. IMPRESSION: Chronic changes as above without acute process Authenticated and [facility]
== END 2025-06-29 23:59 | disposition home or self-care (01) ==
LOC: RAD 13:01
PROVIDERS: PCP Nurse Practitioner Family; Visit Provider Podiatrist
DX: M20.12 Hallux valgus (acquired), left foot; M20.11 Hallux valgus (acquired), right foot; M20.42 Other hammer toe(s) (acquired), left foot; M20.41 Other hammer toe(s) (acquired), right foot; M77.32 Calcaneal spur, left foot; M77.31 Calcaneal spur, right foot
CPT/HCPCS: 73630